=== PATIENT | male | born 1950 | race Hispanic/Latino ===

== ENCOUNTER 2016-08-02 13:53 | Emergency (ER) | payer OTHER ==
[~2016-08-02] VITALS: Ht 172.7 cm; Wt 77.1 kg
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
[2016-08-02] MEDS ORDERED: BACLOFEN10 M1 PO (16:59)
[2016-08-02] MEDS ORDERED: IBUPROFEN600 M1 PO (16:59)
[2016-08-02] MEDS ORDERED: ULTRAM50 M1 PO (16:59)
[2016-08-02 17:14] VITALS: BP 155/71
== END 2016-08-02 17:15 ==
LOC: ERH 13:53
DX: S16.1XXA Strain of muscle, fascia and tendon at neck level, initial encounter (principal); S39.012A Strain of muscle, fascia and tendon of lower back, initial encounter; S80.02XA Contusion of left knee, initial encounter; S60.413A Abrasion of left middle finger, initial encounter; R51 Headache; R07.89 Other chest pain; V49.40XA Driver injured in collision with unspecified motor vehicles in traffic accident, initial encounter
CPT/HCPCS: 72080; 73140-LT; 73562-LT